=== PATIENT | male | born 1980 | race African-American/Black ===

== ENCOUNTER 2021-04-05 01:09 | Emergency (ER) | payer MEDICAID ==
[~2021-04-05] VITALS: Ht 188 cm; Wt 109.0 kg
[2021-04-05 01:20] VITALS: BP 165/99
== END 2021-04-05 04:17 | disposition left against medical advice (07) ==
LOC: ER 01:09
DX: Z53.21 Procedure and treatment not carried out due to patient leaving prior to being seen by health care provider (principal)